=== PATIENT | male | born 1995 | race Caucasian/White ===

== ENCOUNTER 2017-10-22 18:34 | Emergency (ER) | payer BC ==
[~2017-10-22] VITALS: Ht 177.8 cm; Wt 62.1 kg
[2017-10-22 18:40] VITALS: TEMP 36.8; Ht 177.8 cm; Wt 62.1 kg
--- NOTE | 2017-10-22 19:36 | DIAGNOSTIC IMAGING REPORT ---
RIGHT FIFTH FINGER RADIOGRAPHS CLINICAL HISTORY: R 5th digit crush injury COMPARISON: None FINDINGS: Alignment of the right fifth finger is anatomic. Note is made of a tiny ossific fragment along the distal posterior of the distal phalanx of the right fifth finger which suggests a tiny fracture/avulsed bone fragment. No additional fractures within the right fifth finger are identified. There is soft tissue swelling. IMPRESSION: Tiny fracture/avulsed bone fragment along the distal tuft of the distal phalanx of the right fifth finger. Associated soft tissue swelling. Electronically signed by: Bao Ayon M.D. 10/22/2017 7:35 PM Dictated Date/Time: 10/22/2017 7:33 PM
[2017-10-22] MEDS ORDERED: IBUP-103 PO (19:51)
[2017-10-22] MEDS ORDERED: CEPHALEXIN 500MG HOME PACK 1 EA BTL PO STA (20:40)
[2017-10-22] MEDS ORDERED: GELATIN SPONGE 12-7MM EXT STA (20:40)
[2017-10-22] MEDS ORDERED: CEPH500C PO (20:51)
--- NOTE | 2017-10-22 20:53 | EMERGENCY ROOM VISIT NOTE ---
ED Visit Note First contact with patient: 18:45 Chief Complaint: "Crushed tip of finger, fifth digit" History of Present Illness: This patient is a 22-year-old male who presents to the Emergency Department via private vehicle for evaluation of their right fifth digit laceration. Patient sustained the laceration while operating a wood splitter. They report a moderate amount of bleeding initially. They deny any numbness or tingling into the distal extremity. They report no decreased range of motion of the affected digit. Patient was seen at [facility] and was referred here after Gelfoam was applied. Patient rates his current discomfort as a 1/10. Patient's Tetanus status is currently up-to-date. Medications: As noted below Allergies: None PMH: No pertinent SHx: Patient lives locally. ROS: All pertinent positive and negative review of systems are appropriately documented in the History of Present Illness. Physical Exam: VITAL SIGNS - Vital signs and nursing notes were reviewed. Stable. GENERAL -22-year-old male appearing his stated age who is in no acute distress. Communicates well with provider and answers questions appropriately. SKIN - There is a small defect in the patient's right fifth digit nail, and nailbed. Minimal laceration. No open fracture noted. No bleeding. MUSCULOSKELETAL - Laceration as described above. Full range of motion of the affected digit. NEUROLOGIC - Spinothalamic tract was found to be intact with ability to discriminate sharp versus dull sensation. No sensory defects of the dorsal column were appreciated utilizing light touch for evaluation. VASCULAR - Capillary refill was brisk. IMAGING: [~ rep ct add3]] RIGHT FIFTH FINGER RADIOGRAPHS CLINICAL HISTORY: R 5th digit crush injury COMPARISON: None FINDINGS: Alignment of the right fifth finger is anatomic. Note is made of a tiny ossific fragment along the distal posterior of the distal phalanx of the right fifth finger which suggests a tiny fracture/avulsed bone fragment. No additional fractures within the right fifth finger are identified. There is soft tissue swelling. IMPRESSION: Tiny fracture/avulsed bone fragment along the distal tuft of the distal phalanx of the right fifth finger. Associated soft tissue swelling. Electronically signed by: Bao Ayon M.D. 10/22/2017 7:35 PM Dictated Date/Time: 10/22/2017 7:33 PM ED Course: Patient was seen and evaluated by myself. Risks and benefits of performing primary wound closure versus no repair were discussed with the patient who verbalizes understanding. Verbal consent was obtained prior to performing the procedure.The wound was cleansed and prepped in the typical sterile fashion utilizing normal saline and Betadine. The wound was sterilely draped. Once proper anesthetization was established, the wound was further examined and demonstrated no deep involvement. The wound was copiously irrigated with normal saline and Betadine.Gelfoam applied. No suturable wound the wound was cleansed and dressed with a Bacitracin dressing. He was placed on Keflex and is to follow with hand specialist given that he does have a nailbed injury with associated underlying fracture. He is to call the first thing tomorrow morning. A metal splint was applied to the finger for comfort. Patient discharged to home in good condition. In the evaluation and treatment of this patient, the following differential diagnoses were considered: Finger Fracture, Finger Dislocation, Finger Sprain, Finger Contusion, Jersey Finger, or Mallet Finger. Current/Historical Medications Scheduled Cephalexin Monohydrate (Keflex), 500 MG PO TID Scheduled PRN Ibuprofen Tab (Advil), 200-600 MG PO Q4H PRN for Pain Allergies Coded Allergies: No Known Allergies (Unverified , 10/22/17) Vital Signs Date Time Temp Pulse Resp B/P (MAP) Pulse Ox O2 Delivery O2 Flow Rate FiO2 10/22/17 21:20 68 12 110/68 10/22/17 21:20 68 14 110/68 98 10/22/17 18:40 36.8 59 18 102/66 96 Room Air Medications Administered Medications (Trade) Dose Ordered Sig/Faye Route Start Time Stop Time Status Last Admin Dose Admin Cephalexin Monohydrate (Keflex 500MG Home Pack) 1 homepack NOW STAT PO 10/22/17 20:40 10/22/17 20:41 DC 10/22/17 21:14 1 HOMEPACK Departure Information Impression Primary Impression: Crushed finger Dispostion Home / Self-Care Condition GOOD Prescriptions Cephalexin Monohydrate (Keflex) 500 Mg Cap 500 MG PO TID for 7 Days, #21 CAP Prov: Juan M Bella PA-C 10/22/17 Referrals No Doctor, Assigned (PCP) Zaid Sy MD Patient Instructions [facility] Additional Instructions You have been treated in the Emergency Department today for your skin and nail Avulsion. Keflex 500mg by mouth every 8 hours to help prevent infection I recommend following up with Dr. Sy, hand specialist. Leave the GELFOAM and dressing in place for the next 48 hours. Keep the dressing clean and dry until time for removal. To remove the GELFOAM dressing, remove the overlying tape and then soak the wound in warm water until the piece of GELFOAM can be easily removed. Proper wound care is essential for adequate wound healing and infection prevention. You can shower and clean the wound with soap and water. Do not scour over the wound, pat dry with a towel. You can use an antibiotic ointment with a dressing/bandage over the wound for the next 3-4 days. After this time you may leave the wound dry and open to the air. Look for signs of infection of the wound including: increased pain, swelling, foul discharge, streaking, or increased temperature. If any of these are noticed you should return to the Emergency Department for further assessment and treatment. As with any laceration you may have received nerve damage to the surrounding tissues. This damage could be permanent. For pain control, you can use the following aybl-trh-hmuvngq medicines: - Regular strength (325mg/tab) Tylenol (acetaminophen) 2 tabs every 4-6 hours as needed. Do not exceed 12 tablets in a 24 hour period. Avoid taking more than 3 grams (3000 mg) of Tylenol per day. This includes any other sources of acetaminophen you may take on a regular basis. - Regular strength (200 mg/tab) Advil (ibuprofen) 1-2 tabs every 4-6 hours as needed. Do not exceed a dose of 3200 mg per day. Return to the emergency department if your symptoms worsen despite treatment course outlined above.
[2017-10-22 21:20] VITALS: BP 110/68; PULSE 68; O2SAT 98
== END 2017-10-22 21:20 | disposition home or self-care (01) ==
LOC: C.EDB 18:36 → C.EDD 21:20
DX: S67.196A Crushing injury of right little finger, initial encounter (principal); S62.636A Displaced fracture of distal phalanx of right little finger, initial encounter for closed fracture; W31.2XXA Contact with powered woodworking and forming machines, initial encounter; Y92.89 Other specified places as the place of occurrence of the external cause

== ENCOUNTER 2018-02-03 01:28 | Emergency (ER) | payer BC ==
[~2018-02-03] VITALS: Ht 177.8 cm; Wt 61.0 kg
[~2018-02-03 01:28] MED LIST: IBUP-103 PO
[2018-02-03 01:33] VITALS: TEMP 36.6; Ht 177.8 cm; Wt 61.0 kg
[2018-02-03] MEDS ORDERED: ASPI-391 PO (01:46)
[2018-02-03] MEDS ORDERED: SODIUM CHLORIDE 0.9% 1000ML 1,000 ML IV ONE (02:00)
[2018-02-03 02:28] LABS: BASO % 0.4 %; BASO ABS # 0.02 K/uL (0-0.2); EOS % 2.7 %; EOS ABS # 0.13 K/uL (0-0.5); HEMATOCRIT 39.3 % (42-52); HEMOGLOBIN 13.9 g/dL (14.0-18.0); IG# 0.01 K/uL (0.00-0.02); LYMPH % 37.3 %; LYMPH ABS # 1.83 K/uL (1.2-3.4); MEAN CELL VOLUME 84.9 fL (80-100); MEAN CORPUSCULAR HGB CONC 35.4 g/dl (32-36); MONO % 7.8 %; MONO ABS # 0.38 K/uL (0.11-0.59); NEUT % 51.6 %; NEUT ABS # 2.53 K/uL (1.4-6.5); PLATELET COUNT 145 K/uL (130-400); RED CELL DISTRIBUTION WIDTH CV 11.9 % (11.5-14.5); RED CELL DISTRIBUTION WIDTH SD 36.6 fL (36.4-46.3)
[2018-02-03 02:42] LABS: INR 1.1 (0.9-1.1); PTT PATIENT 26.8 SECONDS (21.0-31.0)
[2018-02-03 02:57] LABS: ALBUMIN 4.3 gm/dl (3.4-5.0); CALCIUM 8.9 mg/dl (8.5-10.1); CREATININE 1.07 mg/dl (0.60-1.40); POTASSIUM 3.9 mmol/L (3.5-5.1); TOTAL PROTEIN 7.7 gm/dl (6.4-8.2)
[2018-02-03] MEDS ORDERED: OPTIRAY 320 IV PRN (03:30)
[2018-02-03 05:04] VITALS: BP 129/79; PULSE 62; O2SAT 98
--- NOTE | 2018-02-03 06:40 | DIAGNOSTIC IMAGING REPORT ---
(CHEST FOR PE) ANGIO WITH CT DOSE: HISTORY: Chest pain dyspnea TECHNIQUE: Multiaxial CT images of the chest were performed following the intravenous administration of contrast to evaluate the pulmonary arteries. Maximal intensity projection images were also obtained. A dose lowering technique was utilized adhering to the principles of ALARA. COMPARISON STUDY: None. FINDINGS: There is a normal caliber thoracic aorta with no evidence for dissection. There is no evidence for pulmonary embolus. No pleural effusions. No pneumothorax. The liver and spleen are unremarkable. No mediastinal or hilar lymphadenopathy. The central airways are patent. The lungs are clear. IMPRESSION: No evidence for pulmonary embolus. Lungs are clear The above report was generated using voice recognition software. It may contain grammatical, syntax or spelling errors. Electronically signed by: David Diehl M.D. 02/03/2018 6:39 AM Dictated Date/Time: 02/03/2018 6:37 AM
--- NOTE | 2018-02-03 06:41 | DIAGNOSTIC IMAGING REPORT ---
CT OF THE HEAD WITHOUT CONTRAST CLINICAL HISTORY: Headache. COMPARISON STUDY: No previous studies for comparison. CT DOSE: 772.54 mGy.cm TECHNIQUE: Helical axial images of the head were obtained without IV contrast. Automated exposure control was utilized for the study. A dose lowering technique was utilized adhering to the principles of ALARA. FINDINGS: No acute intracranial hemorrhage, midline shift or mass effect is present. Ventricular system is normal. Basilar cisterns are patent. No extra-axial collections are present. French-white differentiation is maintained. There are no findings to suggest acute dural sinus thrombosis or acute territorial infarct. There are no significant calvarial abnormalities. Visualized portions of the sinuses and mastoid air cells are clear. IMPRESSION: No acute intracranial findings. Electronically signed by: Bao Ayon M.D. 02/03/2018 6:40 AM Dictated Date/Time: 02/03/2018 6:38 AM
--- NOTE | 2018-02-03 07:12 | EMERGENCY ROOM VISIT NOTE ---
History First contact with patient: 01:51 Chief Complaint: HEADACHE Stated Complaint: HEADACHE RT SIDE W PARTIAL NUMBNESS,CHEST PAIN History of Present Illness The patient is a 22 year old male who presents to the Emergency Room with complaints of chest pain and shortness of breath symptoms for the past 10 days. The patient states that he also had right sided headache that began earlier today. The patient did take some Tylenol and Excedrin, which did help his head pain go from a 8/10 to a 2/10. Evidently the patient has a strong family history of hypercoagulability, and recently moved to the area for work. He is in the process of establishing with the [facility] physician group. The patient has not had fever or chills. No leg pain. Review of Systems More than 10 systems were reviewed and otherwise negative with the exception of history of present illness. Past Medical/Surgical History Family history of hypercoagulability Family History Family history of hypercoagulability Social History Smoking Status: Never Smoker Occupation Status: employed Current/Historical Medications Scheduled PRN Tiasjgd-Eomzvprnfgztw-Cpclqmtr (Excedrin Extra Strength), 1 TAB PO DIRECTED PRN for Pain Ibuprofen Tab (Advil), 200-600 MG PO Q4H PRN for Pain Physical Exam Vital Signs Date Time Temp Pulse Resp B/P (MAP) Pulse Ox O2 Delivery O2 Flow Rate FiO2 02/03/18 05:04 62 20 129/79 98 02/03/18 03:23 63 20 134/86 97 Room Air 02/03/18 02:37 64 18 137/78 100 Room Air 02/03/18 01:33 36.6 63 18 121/82 98 Room Air Physical Exam VITALS: Vitals are noted on the nurse's note and reviewed by myself. Vital signs stable. GENERAL: Well-developed, well-nourished, white male, who is in no acute distress and resting comfortably. Patient is cooperative with the examination. MOUTH: Mucous membranes moist. Tonsils are not enlarged. Pharynx without erythema, blood, or exudate. Uvula midline. Airway patent. NECK: Supple without nuchal rigidity. No lymphadenopathy. No thyromegaly. Cervical spine is nontender. HEART: Regular rate and rhythm without murmurs gallops or rubs. LUNGS: Clear to auscultation bilaterally without wheezes, rales or rhonchi. No retractions or accessory muscle use. MUSCULOSKELETAL: No muscle atrophy, erythema, or edema noted. Full range of motion in all extremities. No calf tenderness. NEURO: Patient was alert and oriented to person place and time. CN II through XII grossly intact. Medical Decision & Procedures ER Provider Diagnostic Interpretation: CT OF THE HEAD WITHOUT CONTRAST CLINICAL HISTORY: Headache. COMPARISON STUDY: No previous studies for comparison. CT DOSE: 772.54 mGy.cm TECHNIQUE: Helical axial images of the head were obtained without IV contrast. Automated exposure control was utilized for the study. A dose lowering technique was utilized adhering to the principles of ALARA. FINDINGS: No acute intracranial hemorrhage, midline shift or mass effect is present. Ventricular system is normal. Basilar cisterns are patent. No extra-axial collections are present. French-white differentiation is maintained. There are no findings to suggest acute dural sinus thrombosis or acute territorial infarct. There are no significant calvarial abnormalities. Visualized portions of the sinuses and mastoid air cells are clear. IMPRESSION: No acute intracranial findings. (CHEST FOR PE) ANGIO WITH CT DOSE: HISTORY: Chest pain dyspnea TECHNIQUE: Multiaxial CT images of the chest were performed following the intravenous administration of contrast to evaluate the pulmonary arteries. Maximal intensity projection images were also obtained. A dose lowering technique was utilized adhering to the principles of ALARA. COMPARISON STUDY: None. FINDINGS: There is a normal caliber thoracic aorta with no evidence for dissection. There is no evidence for pulmonary embolus. No pleural effusions. No pneumothorax. The liver and spleen are unremarkable. No mediastinal or hilar lymphadenopathy. The central airways are patent. The lungs are clear. IMPRESSION: No evidence for pulmonary embolus. Lungs are clear Laboratory Results 02/03/18 02:17 Red Blood Count 4.63, Mean Corpuscular Volume 84.9, Mean Corpuscular Hemoglobin 30.0, Mean Corpuscular Hemoglobin Concent 35.4, Mean Platelet Volume 10.0, Neutrophils (%) (Auto) 51.6, Lymphocytes (%) (Auto) 37.3, Monocytes (%) (Auto) 7.8, Eosinophils (%) (Auto) 2.7, Basophils (%) (Auto) 0.4, Neutrophils # (Auto) 2.53, Lymphocytes # (Auto) 1.83, Monocytes # (Auto) 0.38, Eosinophils # (Auto) 0.13, Basophils # (Auto) 0.02 8/7/18 02:17 Test 02/03/18 02:17 02/03/18 02:29 02/03/18 02:33 White Blood Count 4.90 K/uL (4.8-10.8) Red Blood Count 4.63 M/uL (4.7-6.1) Hemoglobin 13.9 g/dL (14.0-18.0) Hematocrit 39.3 % (42-52) Mean Corpuscular Volume 84.9 fL (80-100) Mean Corpuscular Hemoglobin 30.0 pg (25-34) Mean Corpuscular Hemoglobin Concent 35.4 g/dl (32-36) Platelet Count 145 K/uL (130-400) Mean Platelet Volume 10.0 fL (7.4-10.4) Neutrophils (%) (Auto) 51.6 % Lymphocytes (%) (Auto) 37.3 % Monocytes (%) (Auto) 7.8 % Eosinophils (%) (Auto) 2.7 % Basophils (%) (Auto) 0.4 % Neutrophils # (Auto) 2.53 K/uL (1.4-6.5) Lymphocytes # (Auto) 1.83 K/uL (1.2-3.4) Monocytes # (Auto) 0.38 K/uL (0.11-0.59) Eosinophils # (Auto) 0.13 K/uL (0-0.5) Basophils # (Auto) 0.02 K/uL (0-0.2) RDW Standard Deviation 36.6 fL (36.4-46.3) RDW Coefficient of Variation 11.9 % (11.5-14.5) Immature Granulocyte % (Auto) 0.2 % Immature Granulocyte # (Auto) 0.01 K/uL (0.00-0.02) Prothrombin Time 11.1 SECONDS (9.0-12.0) Prothromb Time International Ratio 1.1 (0.9-1.1) Activated Partial Thromboplast Time 26.8 SECONDS (21.0-31.0) Partial Thromboplastin Ratio 1.0 Anion Gap 6.0 mmol/L (3-11) Est Creatinine Clear Calc Drug Dose 91.8 ml/min Estimated GFR () 112.0 Estimated GFR (Non- 96.6 BUN/Creatinine Ratio 17.7 (10-20) Calcium Level 8.9 mg/dl (8.5-10.1) Magnesium Level 2.2 mg/dl (1.8-2.4) Total Bilirubin 0.5 mg/dl (0.2-1) Aspartate Amino Transf (AST/SGOT) 20 U/L (15-37) Alanine Aminotransferase (ALT/SGPT) 22 U/L (12-78) Alkaline Phosphatase 67 U/L (45-117) Total Protein 7.7 gm/dl (6.4-8.2) Albumin 4.3 gm/dl (3.4-5.0) Globulin 3.4 gm/dl (2.5-4.0) Albumin/Globulin Ratio 1.3 (0.9-2) Lipase 158 U/L (73-393) Thyroid Stimulating Hormone (TSH) 2.320 uIu/ml (0.300-4.500) Lyme Disease IgG Antibody NEG (NEG) Lyme Disease IgM Antibody NEG (NEG) Bedside Troponin I < 0.030 ng/ml (0-0.045) Urine Color YELLOW Urine Appearance CLEAR (CLEAR) Urine pH 7.0 (4.5-7.5) Urine Specific [place] 1.005 (1.000-1.030) Urine Protein NEG (NEG) Urine Glucose (UA) NEG (NEG) Urine Ketones NEG (NEG) Urine Occult Blood NEG (NEG) Urine Nitrite NEG (NEG) Urine Bilirubin NEG (NEG) Urine Urobilinogen NEG (NEG) Urine Leukocyte Esterase NEG (NEG) Medications Administered Medications (Trade) Dose Ordered Sig/Faye Route Start Time Stop Time Status Last Admin Dose Admin Sodium Chloride 1,000 ml @ 999 mls/hr Q1H1M ONCE IV 02/03/18 02:00 02/03/18 03:00 DC 02/03/18 02:21 999 MLS/HR ED Course Physical exam and history were performed. Nursing notes, EMR, and Medication List were personally reviewed. Patient appears to have both a headache and persistent chest pain. His headache seems to be improved from earlier today. His chest pain has been persistent for the past 10 days. IV access was established and labs were obtained. The patient was hydrated with normal saline. The patient has a very strong concern for PE or stroke. Evidently he did have a family member who recently had a PE, and he is concerned for the same because of his genetics. The patient's mother is also concerned about a stroke/ischemic event, although clinically the patient is not exhibiting any signs of this. Because of the patient's concern a CT scan of the head and the chest was performed. The patient's blood work is as above and was reviewed. He does not have a significantly elevated white blood cell count, gross anemia or significant transaminases are not diagnostic. Troponin 1 is negative. EKG was normal sinus rhythm without acute ST elevate. CT scan of the head and chest are both performed. He does not have evidence of acute intracranial findings. There is no pulmonary emboli or other findings of the chest to explain his symptoms. The patient was able to sleep very comfortably here in the emergency department. He did not have any worsening or exacerbation of his discomfort while here. He did admit that many of his symptoms may be the result of stress from moving. The patient does have an upcoming appointment with his primary care physician group, and was asked to keep his follow-up with them. The patient was otherwise invited back to the ER with any new, worsening, or concerning symptoms. He voiced understanding and was discharged with instructions as below. The chart was completed utilizing [employer] Speech Voice Recognition Software. Grammatical errors, random word insertions, pronoun errors, and incomplete sentences are an occasional consequence of this system due to software limitations, ambient noise, and hardware issues. Any formal questions or concerns about the content, text, or information contained within the body of this dictation should be directly addressed to the provider for clarification. . Medical Decision Differential diagnosis: Etiologies such as cardiac ischemia, aortic dissection, pulmonary embolism, pneumonia, pneumothorax, musculoskeletal, infections, pericarditis, myocarditis , esophageal rupture, gastrointestinal, as well as others were entertained. Impression Primary Impression: Headache Additional Impression: Chest pain Departure Information Dispostion Home / Self-Care Condition GOOD Forms HOME CARE DOCUMENTATION FORM, IMPORTANT VISIT INFORMATION Patient Instructions My [facility] Additional Instructions You were seen and evaluated today on an emergency basis only. This is not a substitute for, or an effort to provide, complete comprehensive medical care. It is not possible to recognize and treat all injuries or illnesses in a single emergency department visit. For this reason it is recommended that you followup with your primary care physician group for ongoing care and evaluation. Drink plenty fluids and remain well-hydrated. You are welcome to return to the emergency department anytime with new, worsening, or concerning symptoms. Problem Qualifiers
== END 2018-02-03 05:03 | disposition home or self-care (01) ==
LOC: C.EDB 01:30 → C.EDC 05:03
DX: R51 Headache (principal); R07.9 Chest pain, unspecified; Z83.2 Family history of diseases of the blood and blood-forming organs and certain disorders involving the immune mechanism